=== PATIENT | male | born 1985 | race Caucasian/White ===

== ENCOUNTER → 2024-04-01 | Emergency (ER) | payer OTHER ==
[~2024-04-01] VITALS: Ht 182.9 cm; Wt 68.0 kg
[2024-04-01 16:00] VITALS: O2SAT 97
[2024-04-01 16:06] VITALS: BP 111/60; PULSE 107; RESP 16; TEMP 97.8; O2SAT 99
== END ==
LOC: ER 15:57
DX: R21 Rash and other nonspecific skin eruption (principal); R56.9 Unspecified convulsions
CPT/HCPCS: 99281